=== PATIENT | female | born 2000 | race Caucasian/White ===

== ENCOUNTER 2022-09-19 01:27 | Inpatient (IN) | payer BC, OTHER ==
[2022-09-19 03:52] VITALS: BP 140/83
--- NOTE | 2022-09-19 05:34 | PR ---
[facility] [address] [facility] [place], [place] [address] Signed Progress Notes IP Datetime Report Generated by MIKEL: 09/19/2022 05:34 PROGRESS NOTES: [id number] Impression: Normal Progression of Labor Procedures: Artificial ROM; Sterile Vag Exam Plan: Continue Present Management VITAL SIGNS: [id number] Vital Signs: Reviewed; Within Normal Limits EXAM: [id number] Dilatation: 7.0 Effacement: 100 Station: -2 Contractions: q 4 to 10 min MEMBRANES: [id number] Comments: Comfortable after epidural. Progressing well. FETUS A: [id number] FHR Baseline: 130 Variability: Moderate 6-25bpm Accelerations: 15X15 Decelerations: None FHR Category: Category I Presentation: Vertex FETUS B: [id number] Signing Physician: Jessica Betts MD Copies: ~ *Electronically Signed* 09/19/22 0534 JESSICA BETTS MD PATIENT NAME: JENIFER OLIVEIRA PROGRESS NOTE DATE OF : 01/03/01 PHYSICIAN: JESSICA BETTS MD RPT #: [id number] REPORT IS CONFIDENTIAL AND NOT TO BE RELEASED WITHOUT AUTHORIZATION
--- NOTE | 2022-09-19 06:40 | PR ---
[facility] [address] [facility] [place], [place] [address] Signed Progress Notes IP Datetime Report Generated by MIKEL: 09/19/2022 06:40 PROGRESS NOTES: [id number] Impression: Normal Progression of Labor Procedures: Sterile Vag Exam Plan: Continue Present Management VITAL SIGNS: [id number] Vital Signs: Reviewed; Within Normal Limits EXAM: [id number] Dilatation: 7.0 Effacement: 100 Station: -2 Contractions: q 4 to 10 min MEMBRANES: [id number] Comments: Progressing well. Will begin pushing soon. FETUS A: [id number] FHR Baseline: 130 Variability: Moderate 6-25bpm Accelerations: 15X15 Decelerations: None FHR Category: Category I Presentation: Vertex FETUS B: [id number] Signing Physician: Jessica Betts MD Copies: ~ *Electronically Signed* 09/19/22 0640 JESSICA BETTS MD PATIENT NAME: JENIFER OLIVEIAR PROGRESS NOTE DATE OF : 00 PHYSICIAN: JESSICA BETTS MD RPT #: [id number] REPORT IS CONFIDENTIAL AND NOT TO BE RELEASED WITHOUT AUTHORIZATION
--- NOTE | 2022-09-19 11:50 | NUR ---
MOM IN BED. DAD ASLEEP ON COUCH. PATERNAL GRANDMOTHER IN CHAIR WITH BABY. MOM'S RESPONSE SOMEWHAT DISTRACTED. GRANDMOTHER INTERACTED MORE WITH ME AND WITH BABY. GRANDMOTHER REQUESTED WARM BLANKET WHICH I PROVIDED. ALSO REQUESTED THERMOSTAT BE ADJUSTED TO SLIGHTLY WARMER WHICH I DID. DECLINED PRAYER.
--- NOTE | 2022-09-20 08:53 | PR ---
[facility] [address] [facility] [place], [place] [address] Signed PP Progress Notes Datetime Report Generated by CPN: 09/20/2022 08:53 SUBJECTIVE: [id number] Pain: Within Normal Limits Nausea/Vomiting: Denies Vital Signs: [id number] Vital Signs: Reviewed; Within Normal Limits Cardiovascular: Not Done Respiratory: Not Done Abdomen/Uterus: Abnormal Lochia: Normal Vulva/Perineum: Not Done Breasts: Not Done CVA Tenderness: Not Done Extremities: Normal Incision: Not Applicable Progress: Normal Exam Comments: Fundus firm, NT @ U-1. H/H 11.3/35.2, WBC 9.9, plat 183k IMPRESSION/PLAN/PROCEDURES: [id number] Impression: Normal Progression Plan: Discharge Procedures: None Progress Notes: Doing well. They are ready for D/C. Signing Physician: Jessica Betts MD Copies: ~ *Electronically Signed* 09/20/22 0853 JESSICA BETTS MD PATIENT NAME: JENIFER OLIVEIRA PROGRESS NOTE DATE OF : 00 PHYSICIAN: JESSICA BETTS MD RPT #: [id number] REPORT IS CONFIDENTIAL AND NOT TO BE RELEASED WITHOUT AUTHORIZATION
== END 2022-09-20 10:10 | disposition home or self-care (01) | DRG 807 ==
LOC: FBCO 01:27 → FBC 02:11
PROVIDERS: ADMIT Obstetrics & Gynecology; ATTEND Obstetrics & Gynecology
PROC: 10E0XZZ Delivery of Products of Conception, External Approach (ICD-10-PCS; principal; 2022-09-19)
PROC: 10907ZC Drainage of Amniotic Fluid, Therapeutic from Products of Conception, Via Natural or Artificial Opening (ICD-10-PCS; 2022-09-19)
PROC: 3E0R3BZ Introduction of Anesthetic Agent into Spinal Canal, Percutaneous Approach (ICD-10-PCS; 2022-09-19)
PROC: 00HU33Z Insertion of Infusion Device into Spinal Canal, Percutaneous Approach (ICD-10-PCS; 2022-09-19)
DX: O77.0 Labor and delivery complicated by meconium in amniotic fluid (principal); Z37.0 Single live birth; Z3A.39 39 weeks gestation of pregnancy; Z90.49 Acquired absence of other specified parts of digestive tract
CPT/HCPCS: 01960; 36415; 85027; 86850; 86900; 86901; A9270; J2795; J7121